=== PATIENT | male | born 1940 | race Caucasian/White ===

== ENCOUNTER 2021-04-07 11:56 | Outpatient (CLI) | payer MEDICARE ==
[2021-04-07 14:58] LABS: PTT 27.7 sec (22.0-33.0); Prothrombin Time 11.2 sec (9.5-12.1)
[2021-04-07 15:06] LABS: Hemoglobin 11.3 g/dL (13.5-17.5); Mean Corpuscular HGB CONC 32.5 g/dL (32.0-36.0); Mean Corpuscular Hemoglobin 30.5 pg (27.0-33.0); Mean Corpuscular Volume 94.1 fl (81.2-95.1); Mean Platelet Volume 11.2 fl (7.4-10.4); Platelet Count 157 10x3/uL (150-450); RBC Distribution Width 14.4 % (11.5-14.5); White Blood Cell (WBC) Count 3.9 10x3/uL (3.5-10.5)
== END 2021-04-07 11:57 | disposition home or self-care (01) ==
LOC: LABBT 11:56
PROVIDERS: ATTEND Neurological Surgery
DX: Z01.818 Encounter for other preprocedural examination (principal); M48.061 Spinal stenosis, lumbar region without neurogenic claudication; M43.17 Spondylolisthesis, lumbosacral region
CPT/HCPCS: 85027; 85610; 85730; 93005; 93010

== ENCOUNTER 2021-04-12 05:39 | Observation (INO) | payer MEDICARE ==
[2021-04-12] MEDS ORDERED: Fentanyl 250 MCG/5 ML VIAL ONE (06:12)
[2021-04-12] MEDS ORDERED: Thrombin 5000 UNITS/5 ML VIAL ONE (06:27)
[2021-04-12] MEDS ORDERED: EPINEPHrine 1 MG/ML AMP ONE (06:27)
[2021-04-12] MEDS ORDERED: Bupivacaine PF 0.5% 30 ML VIAL ONE (06:27)
[2021-04-12] MEDS ORDERED: Acetaminophen 325 MG TAB PO PRN (06:39)
[2021-04-12] MEDS ORDERED: HYDROcodone/Acetaminophen 7.5/325 mg Tablet PO PRN ×3 (06:39→08:01)
[2021-04-12] MEDS ORDERED: Bisacodyl 10 MG SUPP PR PRN (06:39)
[2021-04-12] MEDS ORDERED: tiZANidine HCl 4 MG TAB PO PRN (06:39)
[2021-04-12] MEDS ORDERED: diphenhydrAMINE 50 MG/ML VIAL IVP PRN (06:39)
[2021-04-12] MEDS ORDERED: Mag-Al 1200 mg/1200 mg/30 ML UDCUP PO PRN (06:39)
[2021-04-12] MEDS ORDERED: Milk Of Magnesia 30 ML UDCUP PO PRN (06:39)
[2021-04-12] MEDS ORDERED: HYDROcodone/Acetaminophen 10/325 mg Tablet PO PRN ×3 (06:39→08:02)
[2021-04-12] MEDS ORDERED: Ondansetron PF 4 MG/2 ML Vial ONE (07:12)
[2021-04-12] MEDS ORDERED: PROPOFOL 200 MG/20 ML VIAL ONE (07:12)
[2021-04-12] MEDS ORDERED: Lidocaine 1% PF 5 ML VIAL ONE (07:12)
[2021-04-12] MEDS ORDERED: ePHEDrine 50 MG/ML VIAL ONE (07:12)
[2021-04-12] MEDS ORDERED: Rocuronium Bromide 10 MG/ML (10ML VIAL) ONE (07:12)
[2021-04-12] MEDS ORDERED: Ketorolac Tromethamine 30 MG/ML VIAL ONE (07:12)
[2021-04-12] MEDS ORDERED: PHENYLEPHRINE-NS 100 MCG/ML 10 ML SYRINGE ONE ×2 (07:12→08:28)
[2021-04-12] MEDS ORDERED: Glycopyrrolate 0.2 MG/ML 5 ML SYRINGE ONE (07:12)
[2021-04-12] MEDS ORDERED: Ondansetron HCl/PF 4 MG/2 ML Vial IVP PRN (08:18)
[2021-04-12] MEDS ORDERED: Promethazine HCl 25 MG/ML VIAL IVPB PRN (08:18)
[2021-04-12] MEDS ORDERED: Promethazine HCl 25 MG/ML VIAL IM PRN (08:18)
[2021-04-12] MEDS ORDERED: Metoclopramide HCl 10 MG/2 ML VIAL ONE (08:19)
[2021-04-12] MEDS ORDERED: Rocuronium Bromide 50 MG/5 ML VIAL ONE (08:19)
[2021-04-12] MEDS ORDERED: Phenylephrine 10 MG/ML VIAL ONE (08:28)
[2021-04-12] MEDS ORDERED: ePHEDrine Sulfate 50 MG/10 ML VIAL ONE ×2 (10:52→12:25)
[2021-04-12] MEDS ORDERED: Fentanyl 100 MCG/2 ML VIAL ONE ×2 (12:24→14:11)
[2021-04-12] MEDS ORDERED: Promethazine HCl 25 MG/ML VIAL ONE (13:23)
[2021-04-12] MEDS: Sodium Chloride 0.9% 1,000 ML IV SCH ×2 (17:23→22:31)
[2021-04-12] MEDS: CEFAZOLIN 2 GM in Premix Bag 1 BAG IVPB SCH ×2 (17:27→23:41)
[2021-04-12] MEDS: Gemfibrozil 600 MG TAB PO SCH ×2 (18:49→18:55)
[2021-04-12] MEDS: Metoprolol Tartrate 25 MG TAB PO SCH (18:49)
[2021-04-12] MEDS: metFORMIN 500 MG TAB PO SCH ×2 (18:49→18:55)
[2021-04-12] MEDS: Lisinopril 20 MG TAB PO SCH (18:49)
[2021-04-12] MEDS ORDERED: Pioglitazone HCl 45 MG TAB PO SCH (21:00)
[2021-04-12] MEDS: glipiZIDE 10 MG TAB PO SCH (22:31)
[2021-04-13] MEDS: Gemfibrozil 600 MG TAB PO SCH ×2 (08:58→16:27)
[2021-04-13] MEDS: Metoprolol Tartrate 25 MG TAB PO SCH (08:58)
[2021-04-13] MEDS: metFORMIN 500 MG TAB PO SCH ×2 (08:58→16:27)
[2021-04-13] MEDS: Lisinopril 20 MG TAB PO SCH (08:58)
[2021-04-13] MEDS: glipiZIDE 10 MG TAB PO SCH ×2 (08:59→16:28)
[2021-04-13] MEDS: Sodium Chloride 0.9% 1,000 ML IV SCH (10:36)
[2021-04-13 10:54] VITALS: BMI 30.4
[2021-04-13 16:29] VITALS: BP 123/65; TEMP 99
== END 2021-04-13 18:00 | disposition home or self-care (01) ==
LOC: SDC 05:39 → SURG A 06:39 → INTOOBSV 06:39
PROVIDERS: ADMIT Neurological Surgery; ATTEND Neurological Surgery
PROC: 0SG30AJ Fusion of Lumbosacral Joint with Interbody Fusion Device, Posterior Approach, Anterior Column, Open Approach (ICD-10-PCS; principal; 2021-04-12)
DX: M43.16 Spondylolisthesis, lumbar region (principal); M43.17 Spondylolisthesis, lumbosacral region; M54.16 Radiculopathy, lumbar region; M48.061 Spinal stenosis, lumbar region without neurogenic claudication; I10 Essential (primary) hypertension; E11.9 Type 2 diabetes mellitus without complications; E78.00 Pure hypercholesterolemia, unspecified; M19.90 Unspecified osteoarthritis, unspecified site; F17.290 Nicotine dependence, other tobacco product, uncomplicated; G47.30 Sleep apnea, unspecified; D64.9 Anemia, unspecified; Z79.84 Long term (current) use of oral hypoglycemic drugs; Z79.899 Other long term (current) drug therapy; Z88.5 Allergy status to narcotic agent
CPT/HCPCS: 20930; 20936; 22633; 22853; 76000; 82962; 97116 ×2; 97139 ×2; C1768; 36416; J0171; J0690; J1885; J2370; J2405; J2550; J2704; J2765; J3010; J3370; J3490; S0020